=== PATIENT | female | born 1965 | race Caucasian/White ===

== ENCOUNTER 2020-01-27 21:18 | Observation (INO) | payer OTHER, SELFPAY ==
[2020-01-27 21:36] VITALS: BP 221/107; PULSE 75; RESP 18; TEMP 36.1; O2SAT 96; BMI 35.4
--- NOTE | 2020-01-27 21:38 | ED_ITS ---
HPI - Chest Pain General Chief Complaint: Extremity Injury, Upper Stated Complaint: states pulled muscle left side chest Time Seen by Provider: 01/27/20 21:35 Source: patient Mode of arrival: Ambulatory Limitations: no limitations History of Present Illness HPI narrative: 54-year-old female nonsmoker with history of hypertension on lisinopril presents with a chief complaint of left-sided chest pain with radiation to her back and her shoulder over the course of the week. She has been watching her 3 grandkids and thinks that she has overdone it must have grabbed them and pulled a muscle. She states the pain is achy and squeezing and denies much in the way of provocation or palliation. It radiates as stated. She denies associated symptoms such as dizziness, weakness or lightheadedness. She is not nauseated and denies any vomiting or diarrhea. She denies any cardiac history, denies any recent travel, history of clot or cancer. She denies any numbness, tingling or weakness. MD complaint: chest pain Onset (ago): day(s) Duration: intermittent Pain location: left chest Severity: moderate Quality: tightness and aching Pain radiation: LUE and back Relieving factors: nothing Exacerbating factors: nothing Treatments prior to arrival chest pain: none Related Data Allergies Allergy/AdvReac Type Severity Reaction Status Date / Time No Known Drug Allergies Allergy Verified 01/27/20 23:14 Review of Systems Constitutional Constitutional: Denies chills, Denies fatigue, Denies fever(s), Denies frequent falls, Denies lethargy and Denies weakness Eyes Eyes: Denies change in vision, Denies eye discharge, Denies irritation and Denies loss of vision ENT Ears, Nose, Mouth, and Throat: Denies change in voice, Denies dizziness, Denies neck pain, Denies sore throat and Denies throat swelling Cardiovascular Cardiovascular: Reports chest pain, Denies irregular heart rhythm, Denies lightheadedness, Denies palpitations, Denies dyspnea, Denies dyspnea on exertion and Denies orthopnea Respiratory Respiratory: Denies cough, Denies dyspnea, Denies dyspnea on exertion and Denies wheezing Gastrointestinal Gastrointestinal: Denies abdominal pain, Denies change in bowel habits, Denies diarrhea, Denies nausea and Denies vomiting Musculoskeletal Musculoskeletal: Denies neck pain and Denies numbness Integumentary/Breasts Skin/Breast: Denies pruritus, Denies erythema, Denies rash and Denies wounds Neurologic Neurologic: Denies behavioral changes, Denies confusion, Denies dizziness, Denies frequent falls, Denies loss of vision, Denies numbness and Denies weakness Psychiatric Psychiatric: Denies anxiety, Denies behavioral changes, Denies confusion, Denies depression, Denies homicidal ideation and Denies suicidal ideation Endocrine Endocrine: Denies fatigue, Denies flushing and Denies palpitations Hematologic/Lymphatic Hematologic/Lymphatic: Denies easy bruising Allergic/Immunologic Allergic/Immunologic: Denies urticaria, Denies throat swelling and Denies whee zing Patient History Social History Smoking Status: Never smoker Smoking Status: Never smoker alcohol intake frequency: 0-2 drinks per day Exam Narrative Exam Narrative: GENERAL: [54] year old patient appears stated age. Well- nourished, well-developed patient, in mild distress. HEAD: Atraumatic. Normocephalic. EYES: Pupils equal round and reactive. Extraocular motions intact. No scleral icterus. No injection or drainage. ENT: Nose without bleeding, purulent drainage. Throat without erythema, tonsillar hypertrophy or exudate. Airway patent. NECK: Trachea midline. Non tender CARDIOVASCULAR: Regular rate and rhythm without murmurs, gallops, or rubs. No reproducible anterior chest pain RESPIRATORY: Clear to auscultation. Breath sounds equal bilaterally. No wheezes, rales, or rhonchi. GASTROINTESTINAL: Abdomen soft, non-tender, nondistended. EXTREMITIES: No edema or joint tenderness. Not obviously worsened by use of left arm BACK: Nontender without deformity or crepitance. No flank tenderness. NEURO: AOx3. SKIN: No rash or erythema of visible areas Initial Vital Signs Initial Vital Signs: Vital Signs Temperature 97.0 F L 01/27/20 21:36 Pulse Rate 75 01/27/20 21:36 Respiratory Rate 18 01/27/20 21:36 Blood Pressure 221/107 H 01/27/20 21:36 Pulse Oximetry 96 01/27/20 21:36 Course Orders Ordered: ED Orders 01/27/20 22:35 XR chest 1V Stat Basic Metabolic Panel Stat Complete Blood Count AUTO DIFF Stat NT-proBNP (BNP-Adult 18+) Stat Troponin & CK Cardiac Panel Stat 01/28/20 00:45 D Dimer Stat Troponin I Stat 01/28/20 00:59 EKG-12 Lead Stat Nicardipine HCl 25 mg/ Sodium (Chloride) 250 mls @ 50 mls/hr IV TITRATE NING; Protocol Last Admin: 01/28/20 01:28 Dose: 5 mg/hr, 50 mls/hr Documented by: CLARENCE Discontinued Medications Ketorolac Tromethamine (Toradol) 15 mg IV NOW ONE Stop: 01/27/20 22:36 Last Admin: 01/27/20 22:41 Dose: 15 mg Documented by: CLARENCE Labetalol HCl (Trandate) 10 mg IV NOW ONE Stop: 01/27/20 23:39 Last Admin: 01/27/20 23:43 Dose: 10 mg Documented by: CLARENCE Nitroglycerin (Nitrostat) 0.4 mg SL NOW ONE Stop: 01/28/20 00:07 Last Admin: 01/28/20 00:09 Dose: 0.4 mg Documented by: CLARENCE Reevaluation(s) Reevaluation #1: Blood pressure quite elevated for patient. She states she did not miss any of her medications. Patient given labetalol 10 mg and it did very little to affect her blood pressure, her pain remains constant. Reevaluation #2: Patient given nitro and blood pressures down to the 170s and the deep, squeezing pain seems to be improved but there is still some residual pain that she struggles to describe Vital Signs Vital signs: Vital Signs - 8 hr 01/27/20 21:36 01/27/20 22:39 01/28/20 00:10 Temperature 97.0 F L Pulse Rate 75 76 78 Respiratory Rate 18 26 H 16 Blood Pressure 221/107 H Blood Pressure [Left Arm] 219/102 H 203/95 H Pulse Oximetry 96 95 97 01/28/20 00:19 01/28/20 00:21 Temperature Pulse Rate 82 Respiratory Rate 16 Blood Pressure 209/95 H Blood Pressure [Left Arm] 175/82 H Pulse Oximetry 97 MDM - Chest Pain Lab Data Result diagrams: 01/27/20 22:35 01/27/20 22:35 Labs: Lab Results 01/27/20 01/27/20 01/28/20 Range/Units 22:35 22:35 00:45 WBC 7.3 (4.5-11.0) X10^3/uL RBC 4.44 (4.0-5.2) X10^6/uL Hgb 14.0 (12.0-16.0) g/dL Hct 40.7 (36-46) % MCV 91.5 (80-100) fL MCH 31.5 (26-34) PG MCHC 34.4 (30-36) % RDW 13.6 (11.6-14.8) % Plt Count 277 (150-400) X10^3/uL Neut % (Auto) 78.9 H (50-75) % Lymph % (Auto) 15.3 L (25-40) % [place] % (Auto) 4.5 (3-14) % Eos % (Auto) 0.5 L (2-4) % Baso % (Auto) 0.8 (0-2) % Neut # (Auto) 5800 (9621-4836) /uL Lymph # (Auto) 1100 (8305-5420) /uL [place] # (Auto) 300 (0-900) /uL Eos # (Auto) 0 (0-450) /uL Baso # (Auto) 100 (0-100) /uL D-Dimer < 200 (<230) ng/mL Sodium 136 L (137-145) mmol/L Potassium 4.2 (3.4-5.1) mmol/L Chloride 102 (98-107) mmol/L Carbon Dioxide 24 (22-32) mmol/L BUN 13 (7-17) mg/dL Creatinine 0.66 (0.52-1.04) mg/dL Estimated GFR > 60.0 (>60) mL/min BUN/Creatinine Ratio 19.7 (6-22) Glucose 144 H (70-100) mg/dL Calcium 9.9 (8.4-10.2) mg/dL Total Creatine Kinase 61 (30-135) U/L CK-MB (CK-2) TNP CK-MB (CK-2) Rel Index TNP Troponin I < 0.012 (0.01-0.034) ng/mL NT-Pro-B Natriuret Pep 51 (<125) pg/mL 01/28/20 Range/Units 00:45 WBC (4.5-11.0) X10^3/uL RBC (4.0-5.2) X10^6/uL Hgb (12.0-16.0) g/dL Hct (36-46) % MCV (80-100) fL MCH (26-34) PG MCHC (30-36) % RDW (11.6-14.8) % Plt Count (150-400) X10^3/uL Neut % (Auto) (50-75) % Lymph % (Auto) (25-40) % [place] % (Auto) (3-14) % Eos % (Auto) (2-4) % Baso % (Auto) (0-2) % Neut # (Auto) (8626-9166) /uL Lymph # (Auto) (3508-5085) /uL [place] # (Auto) (0-900) /uL Eos # (Auto) (0-450) /uL Baso # (Auto) (0-100) /uL D-Dimer (<230) ng/mL Sodium (137-145) mmol/L Potassium (3.4-5.1) mmol/L Chloride (98-107) mmol/L Carbon Dioxide (22-32) mmol/L BUN (7-17) mg/dL Creatinine (0.52-1.04) mg/dL Estimated GFR (>60) mL/min BUN/Creatinine Ratio (6-22) Glucose (70-100) mg/dL Calcium (8.4-10.2) mg/dL Total Creatine Kinase (30-135) U/L CK-MB (CK-2) CK-MB (CK-2) Rel Index Troponin I < 0.012 (0.01-0.034) ng/mL NT-Pro-B Natriuret Pep (<125) pg/mL MDM Narrative Medical decision making narrative: Left-sided chest squeezing and pressure along with headache and significantly elevated blood pressure. Symptoms improve as blood pressure is controlled. Multiple antihypertensive is attempted but control achieved only with nicardipine. She is considered for ischemic disease but multiple troponins and nonischemic EKGs. Patient's initial concern for a strain chest wall muscle very unlikely given lack of reproducibility and temporal relationship with hypertension. Other diagnoses such as pulmonary embolism and dissection considered but thought less likely given history, physical and labs. Discharge Plan Departure Patient Disposition: Admitted as Observation Clinical Impression: Hypertensive emergency Chest pain Qualifiers: Chest pain type: unspecified Qualified Code(s): R07.9 - Chest pain, unspecified
--- NOTE | 2020-01-27 22:35 | DI.RAD.S_ITS ---
PROCEDURE: XR CHEST 1V INDICATIONS: chest pain TECHNIQUE: One view of the chest was acquired. COMPARISON: None. FINDINGS: Surgical changes and devices: None. Lungs and pleura: Lungs are clear. No pleural effusions or pneumothorax. Minimal appearance of increased vascularity Mediastinum: Mediastinal contours appear normal. Heart size is minimally prominent. Bones and chest wall: No suspicious bony lesions. Overlying soft tissues appear unremarkable. IMPRESSION: Minimal appearance of increased vascularity which could be secondary to edema versus vascular crowding secondary to poor inspiratory effort. No consolidations. Dictated by: Flower Dobson M.D. on 01/28/2020 at 9:45 Approved by: Flower Dobson M.D. on 01/28/2020 at 9:46
[2020-01-27 22:39] VITALS: BP 219/102; PULSE 76; RESP 26; O2SAT 95
[2020-01-27] MEDS: KETOROLAC 60 MG/2 ML VIAL 15 MG IV (22:41)
[2020-01-27 22:46] LABS: Add Manual Diff / Slide Review NO; Basophils Absolute Auto 100 /uL (0-100); Basophils Percent Auto 0.8 % (0-2); Eosinophils Absolute Auto 0 /uL (0-450); Eosinophils Percent Auto 0.5 % (2-4); Hematocrit 40.7 % (36-46); Lymphocytes Absolute Auto 1100 /uL (1100-4500); Lymphocytes Percent Auto 15.3 % (25-40); Mean Corpuscular HGB Conc 34.4 % (30-36); Mean Corpuscular Hemoglobin 31.5 PG (26-34); Mean Corpuscular Volume 91.5 fL (80-100); Monocytes Absolute Auto 300 /uL (0-900); Monocytes Percent Auto 4.5 % (3-14); Neutrophils Absolute Auto 5800 /uL (1500-7000); Neutrophils Percent Auto 78.9 % (50-75); Platelet Count 277 X10^3/uL (150-400); Red Blood Cell Count 4.44 X10^6/uL (4.0-5.2); Red Cell Distribution Width 13.6 % (11.6-14.8); White Blood Cell Count 7.3 X10^3/uL (4.5-11.0)
[2020-01-27 22:54] LABS: BUN Creatinine Ratio 19.7 (6-22); Blood Urea Nitrogen 13 mg/dL (7-17); Calcium 9.9 mg/dL (8.4-10.2); Carbon Dioxide 24 mmol/L (22-32); Chloride 102 mmol/L (98-107); Creatine Kinase 61 U/L (30-135); Estimated Glomerular Filt Rate > 60.0 mL/min (>60); Glucose 144 mg/dL (70-100); HEMOLYSIS < 15 (0-50); Potassium 4.2 mmol/L (3.4-5.1); Sodium 136 mmol/L (137-145)
[2020-01-27 23:06] LABS: NT-proBNP (BNP-Adult 18+) 51 pg/mL (<125); Troponin I < 0.012 ng/mL (0.01-0.034)
--- NOTE | 2020-01-27 23:24 | PC.NURSE ---
pt c/o left arm pain, last 2 days getting worse. no specific injury, has been carrying a baby and playing with grandkids.
[2020-01-27] MEDS: LABETALOL 20 MG/4 ML SYRINGE 10 MG IV (23:43)
[2020-01-28] VITALS (29 sets, daily range): BP systolic 130–215; BP diastolic 73–99; PULSE 69–99; RESP 16–29; TEMP 36.6–37; O2SAT 92–98; BMI 35.4
[2020-01-28] MEDS: NITROGLYCERIN 0.4 MG SL TAB SL (00:09)
--- NOTE | 2020-01-28 00:21 | PC.NURSE ---
2nd nitro given sl.
[2020-01-28 01:01] LABS: D Dimer < 200 ng/mL (<230)
[2020-01-28 01:14] LABS: Troponin I < 0.012 ng/mL (0.01-0.034)
[2020-01-28] MEDS: NICARDIPINE 25 MG in SODIUM CHLORIDE 0.9% 240 ML 50 ML IV (01:28)
--- NOTE | 2020-01-28 03:14 | P.HP_ITS ---
History of Present Illness History of Present Illness Date Patient Seen: 01/28/20 Time Patient Seen: 02:51 Chief complaint: states pulled muscle left side chest Narrative: Ms. Marie Schaeffer is a 54-year-old nonsmoker female with a history significant for hypertension, hypothyroidism status post menopause and apartment allergies who presents to the ER with complaints of left-sided chest pain with radiation to the left arm and back. The patient has been having progressive pain for 1 week bleeding she initially had strained a muscle when picking up her grandchild. She states the pain has been crest of for 3 days became intense and unbearable to 10/10 today. She has had associated episodes of diaphoresis and nausea. She has mild shortness of breath that she attributes to allergies. She describes her pain as feeling like being hit the chest with a sledgehammer and is a squeezing pressure, aching and sharp at times. She describes the pain is going down the her left upper arm add behind her left shoulder blade. The pain is no better and no worse with activity or rest. She reports no antecedent events or illness and has had no fevers or chills and no known COVID-19 exposures. She has not had headache or visual changes but has allergic rhinitis but no sore throat. He has chest pain and pressure as above with palpitations and sense of rapid heartbeat. She denies complaints of epigastric or abdominal pain, she has had nausea but no vomiting. She denies diarrhea or constipation and has no urinary symptoms. 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 Upon arrival to the ER the patient is afebrile with temperature 97.0?, heart rate of 75, blood pressure of 221/107, respirations of 18 with a pulse ox of 96% on room air. Chest x-ray is obtained which shows no acute cardiopulmonary proce sses with normal heart size and no widening of mediastinum. Her EKG reveals normal sinus rhythm without ectopy or block without ischemic changes or infarct. On laboratory analysis shows a white count of 7.3, hemoglobin of 14.0, hematocrit of 40.7 and platelets 277. Her electrolytes are within normal range she has a BUN of 13 and creatinine 0.66. Her nonfasting glucose is 144. Her calcium is 9.9 and she has a D-dimer that is negative at 200. Her total CK is 61 and she has had 2 troponins that are negative at less than 0.012. Her proBNP is 51. While in the ER the patient received nitroglycerin for the chest pain from which she did develop a headache with transient improvement in blood pressure and minimal improvement in chest discomfort. She received labetalol 100 mg with minimal improvement of blood pressure. The patient started on nicardipine drip for blood pressure control with improvement of blood pressure and chest discomfort. The patient is admitted to the medicine service for hypertensive emergency. Patient History Medical History Bilateral knee pain (Acute) Environmental allergies (Acute) Hypertension (Acute) Hypothyroidism (Acute) Postmenopausal (Acute) Surgical History History of tonsillectomy (Acute) Family & Social History Family History (Updated 01/28/20 @ 03:29 by MAHNAZ Ortega) Father Alzheimer's dementia Mother Diabetes mellitus Hypertension Hyperlipidemia Cardiovascular disease TIA (transient ischemic attack) Brother Smoker Alcohol abuse Daughter No significant medical problems Safety & Behavioral: Feels Safe in Current Yes Environment Tobacco & Substance use: Smoking Status Never smoker alcohol intake frequency 0-2 drinks per day Substance Use Type does not use Comment: The patient lives with her 90-year-old mother in a single family home for home she use primary caregiver. Smoking: The patient denies using tobacco products. Alcohol: Patient denies consuming alcoholic beverages. Substance use: The patient denies using recreational pharmaceuticals herbal or cannabis products. Advanced directives: In direct discussion with the patient she states her wish to be FULL CODE. She designates her daughter Mayr Thibodeaux to be her surrogate decision maker. Meds Home Medications and Allergies Home Medications Medication Instructions Recorded Confirmed Type duloxetine 60 mg PO DAILY 01/28/20 01/28/20 History levothyroxine 112 mcg PO DAILY 01/28/20 01/28/20 History lisinopril 10 mg PO DAILY 01/28/20 01/28/20 History Allergies Allergy/AdvReac Type Severity Reaction Status Date / Time No Known Drug Allergies Allergy Verified 01/27/20 23:14 Review of Systems Review of Systems ROS: Yes All systems reviewed with the patient and are negative except as otherwise documented Exam Vital Signs (past 8 hours): - 01/27/20 21:36 01/27/20 22:39 01/28/20 00:10 Temperature 97.0 F L Pulse Rate 75 76 78 Respiratory Rate 18 26 H 16 Blood Pressure 221/107 H Blood Pressure [Left Arm] 219/102 H 203/95 H Pulse Oximetry 96 95 97 01/28/20 00:19 01/28/20 00:21 01/28/20 00:30 Temperature Pulse Rate 82 69 Respiratory Rate 16 16 Blood Pressure 209/95 H Blood Pressure [Left Arm] 175/82 H 170/90 H Pulse Oximetry 97 94 01/28/20 00:35 01/28/20 01:00 01/28/20 01:25 Temperature Pulse Rate 76 75 78 Respiratory Rate 16 20 22 Blood Pressure Blood Pressure [Left Arm] 173/93 H 215/81 H 172/81 H Pulse Oximetry 93 96 94 01/28/20 01:30 01/28/20 01:55 01/28/20 02:20 Temperature Pulse Rate 77 81 84 Respiratory Rate 29 H 16 17 Blood Pressure Blood Pressure [Left Arm] 168/85 H 167/86 H 170/85 H Pulse Oximetry 95 96 93 01/28/20 02:30 01/28/20 02:40 01/28/20 02:50 Temperature Pulse Rate 97 H 85 89 Respiratory Rate 19 24 16 Blood Pressure Blood Pressure [Left Arm] 154/76 H 165/87 H 155/86 H Pulse Oximetry 94 93 94 01/28/20 02:55 Temperature Pulse Rate 99 H Respiratory Rate 22 Blood Pressure Blood Pressure [Left Arm] 142/73 H Pulse Oximetry 94 Oxygen Delivery Method Room Air Narrative Exam Narrative: GENERAL APPEARANCE: well developed, obese female with BMI of 35.4, who is mildly uncomfortable appearing. HEENT: Normocephalic, PERRLA, conjunctiva clear, sclerae anicteric, EOMs intact without nystagmus, no sinus tenderness to percussion, no rhinorrhea, mucous membranes are moist and pink without lesions or exudate. NECK/THYROID: neck supple, no JVD, no carotid bruit, no thyromegaly, trachea midline. LYMPH NODES: no cervical or supraclavicular lymphadenopathy. SKIN: [place], warm and dry, no visible lesions or rashes HEART: regular rate and rhythm, S1-S2, no murmur, no rubs or gallops, brisk capillary refill, trace pretibial edema LUNGS: clear to auscultation bilaterally, no coarseness crackles or wheezing, no cough present CHEST: Symmetrical movement, no accessory muscle use, good tidal volume. ABDOMEN: Soft, no distention, no abdominal tenderness, no guarding or peritoneal signs, no organomegaly, no flank or suprapubic tenderness, active bowel tones. BACK: Normal curvature, nontender to palpation. EXTREMITIES: moves all extremities, strength is 5/5 and symmetrical, no deformities or joint effusions. NEUROLOGIC: AAO x4, no focal neurologic deficits, cranial nerves II-XII grossly intact, sensation intact to light touch, hearing grossly normal to speech. PSYCH: Good judgment, good insight, linear thought process, cooperative, appropriate with stable behavior Objective Labs Result Diagrams: 01/27/20 22:35 01/27/20 22:35 Labs: Laboratory Results - last 24 hr 01/27/20 01/27/20 01/28/20 22:35 22:35 00:45 WBC 7.3 RBC 4.44 Hgb 14.0 Hct 40.7 MCV 91.5 MCH 31.5 MCHC 34.4 RDW 13.6 Plt Count 277 Neut % (Auto) 78.9 H Lymph % (Auto) 15.3 L [place] % (Auto) 4.5 Eos % (Auto) 0.5 L Baso % (Auto) 0.8 Neut # (Auto) 5800 Lymph # (Auto) 1100 [place] # (Auto) 300 Eos # (Auto) 0 Baso # (Auto) 100 D-Dimer < 200 Sodium 136 L Potassium 4.2 Chloride 102 Carbon Dioxide 24 BUN 13 Creatinine 0.66 Estimated GFR > 60.0 BUN/Creatinine Ratio 19.7 Glucose 144 H Calcium 9.9 Total Creatine Kinase 61 CK-MB (CK-2) TNP CK-MB (CK-2) Rel Index TNP Troponin I < 0.012 NT-Pro-B Natriuret Pep 51 01/28/20 00:45 WBC RBC Hgb Hct MCV MCH MCHC RDW Plt Count Neut % (Auto) Lymph % (Auto) [place] % (Auto) Eos % (Auto) Baso % (Auto) Neut # (Auto) Lymph # (Auto) [place] # (Auto) Eos # (Auto) Baso # (Auto) D-Dimer Sodium Potassium Chloride Carbon Dioxide BUN Creatinine Estimated GFR BUN/Creatinine Ratio Glucose Calcium Total Creatine Kinase CK-MB (CK-2) CK-MB (CK-2) Rel Index Troponin I < 0.012 NT-Pro-B Natriuret Pep Assessment & Plan Assessment & Plan narrative: This is a 54-year-old female patient who presents to the ER in hypertensive emergency with left-sided chest pain radiating to left arm and back with associated diaphoresis and nausea. 1. Hypertensive emergency, present on admission, active. -patient has had some symptoms left arm and back pain that she attributed to a musculoskeletal injury onset 1 week ago becoming worse over the last 3 days with episodic nausea and diaphoresis not associated with activity. -on admission to the ER the patient is found have a blood pressure of 221/107 with a history of hypertension and has been regularly taking lisinopril 10 mg daily. -in the ER the patient received nitroglycerin sublingual x2 with transient improvement in blood pressure and symptoms and labetalol 100 mg without improvement. -12 lead EKG find sinus rhythm with ventricular rate of 75 without ectopy or block, ischemia or infarct. Troponins are evaluated x2 with both less than 0.012. -no evidence of congestive heart failure, breath sounds clear and equal bilateral with BNP of 51 -patient started on nicardipine drip with improvement of blood pressure to 150s to 160s. Will titrate nicardipine drip to systolic blood pressure less than 170. -order metoprolol tartrate 25 mg now, will evaluate response and may continue of 25 mg twice daily. -will continue home regimen of lisinopril 10 mg daily. 2. Hypothyroidism, acquired, chronic, stable -patient denies symptoms of hyper or hypothyroidism her recent dose adjustment. -will continue levothyroxine 112 mcg daily. -will obtain a TSH level with reflex to T4. 3. Anxiety, chronic, stable -per patient report she takes duloxetine for anxiety. -will continue home regimen of duloxetine 60 mg daily Isolation: None VTE prophylaxis: Bilateral SCDs, enoxaparin IV fluid: Nicardipine infusion, no maintenance fluid Diet: Heart healthy low-sodium Code status: FULL CODE, patient's daughter Mary Thibodeaux is her surrogate decision maker. The patient is admitted to the ICU for hypertensive emergency with associated chest pain on a nicardipine drip requiring continuous titration and monitoring. The patient is admitted as observation with expected length of stay to be less than 2 midnights. Critical care time: 45 minutes is spent with over 50% in direct [id number] with the patient. COVID-19 COVID-19 status: Not tested Scores GCS Brian coma scale eye opening: Spontaneous Brian coma scale verbal response: Orientated Brian coma scale motor response: Obey commands [place] coma scale total score: 15
[2020-01-28] MEDS: METOPROLOL IR 25 MG TABLET PO ×2 (03:53→08:09)
--- NOTE | 2020-01-28 03:57 | PC.NURSE ---
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 Pt is alert, oriented X3. IV in place in lt AC, with Nicardipine drip infusing at 25cc/hr = 2.5mg/hr. Vital signs stable, with blood pressure trending down and is now 170/84. Oriented to room and call jose.
--- NOTE | 2020-01-28 04:27 | DI.ECHO.S_ITS ---
[facility] +---------+ : : [address] : : : : [id number] : : : : Phone: [phone]+ Echocardiogram Report + + :Name: TONYA GARCIA Study Date: 01/28/2020 Height: 69 in : :[facility] Weight: 240 lb : : Gender: Female BSA: 2.2 m2 : :: 1965 Age: 54 yrs BP: 170/84 mmHg: :Reason For Study: HYPERTENSIVE EMERGENCY, CP : : Performed By: Bernardo Flynn : :Referring: GRANT VALLES : + + Interpretation Summary Normal both left and right ventricle size and function. The ejection fraction is 60-65%. Mild aortic regurgitation. The ascending aorta is at the upper limits of normal in size. Procedure: A two-dimensional transthoracic echocardiogram with color flow and Doppler was performed. The study quality was technically good. There is no prior echocardiogram noted for this patient. The patient was in normal sinus rhythm during the exam. Left Ventricle: The left ventricle is normal in size. There is normal left ventricular wall thickness. The ejection fraction is estimated to be 60-65%. There are no focal wall motion abnormalities. Diastolic parameters suggest probable normal left ventricular diastolic function and normal filling pressures. Right Ventricle: The right ventricle is normal in size and function. Atria: Both atria are normal in size. The interatrial septum is intact with no evidence for an atrial septal defect. Mitral Valve: The mitral valve is normal in structure and function. There is trace mitral regurgitation. Aortic Valve: The aortic valve is trileaflet. The aortic valve opens well. There is mild aortic regurgitation. Tricuspid Valve: The tricuspid valve is normal in structure and function. No tricuspid regurgitation. Pulmonary artery pressures cannot be estimated because of the lack of a measurable TR jet velocity. Pulmonic Valve: The pulmonic valve is normal in structure and function. There is mild pulmonic regurgitation. Great Vessels: The aortic root is normal size. The ascending aorta is at the upper limits of normal in size. The pulmonary artery is normal size. The IVC is of normal diameter and collapses greater than 50% with a sniff. This suggests a low right atrial pressure of 3 mm Hg. Pericardium/ Pleura There is no pericardial effusion. There is no pleural effusion. MMode/2D Measurements & Calculations LVIDd: 4.8 cm LVOT diam: 2.2 cm LVIDs: 2.9 cm Ao root diam: 3.3 cm FS: 39.6 % asc Aorta Diam: 3.5 cm EPSS: 0.37 cm Ao Arch Diam (Prox Trans): 2.5 cm IVSd: 0.87 cm LVPWd: 0.71 cm LV carlson. diameter/BSA (cm/m^2): 2.2 LV sys. diameter/BSA (cm/m^2): 1.3 LA dimension: 3.7 cm RA long axis: 5.6 cm LA A2 area: 22.1 cm2 RA area: 17.2 cm2 LA A4 area: 21.9 cm2 RA vol: 44.8 ml LA length (vol): 6.2 cm RA : 20.1 ml/m2 LA vol: 66.2 ml IVC diam: 1.4 cm LA vol index: 29.6 ml/m2 Doppler Measurements & Calculations Ao V2 max: 132.8 cm/sec LVOT Max Evan: 125.5 cm/sec Ao V2 mean: 97.5 cm/sec LV V1 max P.3 mmHg Ao max P.1 mmHg LV V1 VTI: 26.2 cm Ao mean P.1 mmHg MIMA(I,D): 3.3 cm2 Ao V2 VTI: 30.3 cm MIMA(V,D): 3.6 cm2 sev ratio: 0.86 MIMA indexed to BSA (cm^2/m^2): 1.5 AI P1/2t: 733.1 msec AI dec slope: 180.0 cm/sec2 MV E max evan: 62.3 cm/sec PA V2 max: 73.1 cm/sec MV A max evan: 67.6 cm/sec PA V2 mean: 54.5 cm/sec MV E/A: 0.92 PA mean P.3 mmHg Med Peak E' Evan: 6.3 cm/sec PA pr(Accel): 56.7 mmHg E/E' med: 9.9 Lat Peak E' Evan: 8.1 cm/sec E/E' lat: 7.7 E/e' average: 8.8 MV dec time: 0.17 sec SV(LVOT): 99.2 ml Electronically signed by: Bryce Vincent on Reading Physician:01/28/2020 04:14 PM
[2020-01-28 05:03] LABS: Add Manual Diff / Slide Review NO; Basophils Absolute Auto 100 /uL (0-100); Basophils Percent Auto 0.8 % (0-2); Eosinophils Absolute Auto 0 /uL (0-450); Eosinophils Percent Auto 0.6 % (2-4); Hematocrit 40.4 % (36-46); Hemoglobin 13.7 g/dL (12.0-16.0); Lymphocytes Absolute Auto 1600 /uL (1100-4500); Lymphocytes Percent Auto 19.6 % (25-40); Mean Corpuscular Hemoglobin 31.4 PG (26-34); Mean Corpuscular Volume 92.6 fL (80-100); Monocytes Absolute Auto 600 /uL (0-900); Monocytes Percent Auto 7.4 % (3-14); Neutrophils Absolute Auto 5900 /uL (1500-7000); Neutrophils Percent Auto 71.6 % (50-75); Platelet Count 277 X10^3/uL (150-400); Red Blood Cell Count 4.36 X10^6/uL (4.0-5.2); Red Cell Distribution Width 13.9 % (11.6-14.8); White Blood Cell Count 8.3 X10^3/uL (4.5-11.0)
[2020-01-28 05:09] LABS: BUN Creatinine Ratio 17.7 (6-22); Blood Urea Nitrogen 11 mg/dL (7-17); Calcium 10.1 mg/dL (8.4-10.2); Carbon Dioxide 29 mmol/L (22-32); Chloride 101 mmol/L (98-107); Cholesterol 264 mg/dL (140-199); Estimated Glomerular Filt Rate > 60.0 mL/min (>60); Glucose 127 mg/dL (70-100); HDL Cholesterol 60 mg/dL (40-60); HEMOLYSIS < 15 (0-50); LDL Cholesterol Calculated 185 mg/dL (<100); Magnesium 2.1 mg/dL (1.6-2.3); Potassium 4.1 mmol/L (3.4-5.1); Sodium 139 mmol/L (137-145); Triglycerides 95 mg/dL (35-150)
[2020-01-28 05:44] LABS: TSH w/ Reflex to FT4 1.47 uIU/mL (0.47-4.68)
[2020-01-28] MEDS: LEVOTHYROXINE 112 MCG TABLET PO (06:02)
[2020-01-28] MEDS: ENOXAPARIN 40 MG/0.4 ML SYRINGE SUBCUT (08:09)
[2020-01-28] MEDS: DULOXETINE 30 MG CAPSULE 60 MG PO (08:09)
[2020-01-28] MEDS: lisinopriL 20 MG TABLET PO (08:09)
--- NOTE | 2020-01-28 10:10 | CM.DANOTE ---
DCP/Assessment: Reviewed chart. Patient is a 54yr old female admitted to I.. with chest pain. PCP is Dena HYDE in [place]. Primary payor is 1)[facility]. Met with patient explained CM/SW role. Patient reports that she resides with family in [place]. 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 Patient also cares for her grandchildren on occasion. Patient reports that she is so busy caring for everyone else often times neglects self care. Patient having chest pain for approximately 1 week. BP high 221/107 upon admit. Patient does not have tutoring clinician and reports that current BP medications are managed by her PCP. Patient provided with some tips on how to log her BP daily. Provider reports in AM rounds that patient most likely will d/c home today if tests negative. Patient has ECHO pending. Patient reports that she is completely I in all ADL's. Patient aware that BP needs to be monitored closely. Patient plans to f/u closely with PCP and tutoring clinician if needed. No d/c planning needs identified. P: Home with family when medically stable. JESSICA Zaragoza Discharge Planning/Care Management CM Discharge Assessment Start: 01/28/20 10:07 Freq: Status: Active Protocol: Document 01/28/20 10:07 CLINT (Rec: 01/28/20 10:10 [facility] [id number]) Discharge Planning Assessment Assigned Radio Electronics Officer JESSICA Zaragoza Contact Information Mary Thibodeaux (daughter) Advance Directives? No History Provided By Patient,Medical Record Prior Living Arrangements House Household Members family Comment Patient is caregiver to her 90yr old mother. Type of transporation used prior to Drives own vehicle admit Independent with ADL's Yes Is patient alert and oriented? Yes Caregiver for Another Yes Barriers to Discharge No Transportation Arrangement Family to provide transport when medically stable. Referrals Initiated None needed Whiteboard Updated in Patient Room with Yes name and ext. # of Radio Electronics Officer Review Status In Process Next Review Type Continued Stay Review
--- NOTE | 2020-01-28 12:21 | DIET.PN ---
Dietary Progress Note Assessment: Ms. Marie Schaeffer is a 54-year-old female with a history significant for hypertension, hypothyroidism status post menopause and allergies who presents to the ER with complaints of left-sided chest pain. The patient has been having progressive pain for 1 week. She initially had strained a muscle when picking up her grandchild. She has had associated episodes of diaphoresis and nausea. She has mild shortness of breath that she attributes to allergies. She admits she does not follow heart healthy restricted diet at home. Common tye include pasta, pizza, [place] food, pre-packaged meals. She is not active and reports a strong family hx of diabetes. HT: 175.26cm WT: 108.8kg UBW: n/a BMI: 35.4 Labs: Gluc: 144, 122 Chol: 264 LDL: 185 MNA: 14 Stephen: 22 Nutrition Diagnosis: Altered nutrition-related lab values r/t cardiac dysfunction aeb elevated serum lipids, shortness of breath. Interventions: 1. Discussed heart healthy nutrition therapy. Provided handouts on heart healthy proteins and fats. 2. Discussed sodium recommendations and ways to cut down on salt. 3. Discussed the importance of fiber in a balanced diet and in helping to control blood pressure and cholesterol. 4. Reviewed the importance of exercise in heart health. Pt agrees to aim for 30min/day of planned activity. Diet Order: heart healthy, low sodium EER: 1121-1342 favio (15-17cal/kg for weight loss) Pro: 110g (1g/kg) Monitoring/Evaluations: weight, PO's, associated labs.
--- NOTE | 2020-01-28 13:20 | PC.NURSE ---
Addendum entered by Jemal Correa R.N. 01/28/20 14:57: 1345- Reviewed EKG with Dr. De La Torre. States waiting for echo report. No add'l orders at this time. Instructed pt to notify staff for increasing chest pressure/pain or new symptoms. Educated to plan of care. Pt verbalizes understanding. Sitting up to chair at this time. Original Note: 1315- Pt reports pressure to left chest wall accompanied by pain rating it 3/10 on 0-[address] De La Torre notified. Awaiting orders.
--- NOTE | 2020-01-28 16:28 | PM.DS.1 ---
History of Present Illness History of Present Illness Date Patient Seen: 01/28/20 Time Patient Seen: 16:28 Chief complaint: states pulled muscle left side chest Narrative: As per MAHNAZ Ortega: Ms. Marie Schaeffer is a 54-year-old nonsmoker female with a history significant for hypertension, hypothyroidism status post menopause and apartment allergies who presents to the ER with complaints of left-sided chest pain with radiation to the left arm and back. The patient has been having progressive pain for 1 week bleeding she initially had strained a muscle when picking up her grandchild. She states the pain has been crest of for 3 days became intense and unbearable to 10/10 today. She has had associated episodes of diaphoresis and nausea. She has mild shortness of breath that she attributes to allergies. She describes her pain as feeling like being hit the chest with a sledgehammer and is a squeezing pressure, aching and sharp at times. She describes the pain is going down the her left upper arm add behind her left shoulder blade. The pain is no better and no worse with activity or rest. She reports no antecedent events or illness and has had no fevers or chills and no known COVID-19 exposures. She has not had headache or visual changes but has allergic rhinitis but no sore throat. He has chest pain and pressure as above with palpitations and sense of rapid heartbeat. She denies complaints of epigastric or abdominal pain, she has had nausea but no vomiting. She denies diarrhea or constipation and has no urinary symptoms. 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 Upon arrival to the ER the patient is afebrile with temperature 97.0?, heart rate of 75, blood pressure of 221/107, respirations of 18 with a pulse ox of 96% on room air. Chest x-ray is obtained which shows no acute cardiopulmonary processes with normal heart size and no widening of mediastinum. Her EKG reveals normal sinus rhythm without ectopy or block without ischemic changes or infarct. On laboratory analysis shows a white count of 7.3, hemoglobin of 14.0, hematocrit of 40.7 and platelets 277. Her electrolytes are within normal range she has a BUN of 13 and creatinine 0.66. Her nonfasting glucose is 144. Her calcium is 9.9 and she has a D-dimer that is negative at 200. Her total CK is 61 and she has had 2 troponins that are negative at less than 0.012. Her proBNP is 51. While in the ER the patient received nitroglycerin for the chest pain from which she did develop a headache with transient improvement in blood pressure and minimal improvement in chest discomfort. She received labetalol 100 mg with minimal improvement of blood pressure. The patient started on nicardipine drip for blood pressure control with improvement of blood pressure and chest discomfort. The patient is admitted to the medicine service for hypertensive emergency. Discharge Providers Provider Date of admission: 01/28/20 02:50 Discharge Date: 01/28/20 Consults: 01/28/20 03:09 Consult to Dietitian, Adult Routine Comment: Reason For Exam: Obesity BMI 35.4, hypertensive emergency 01/28/20 03:10 Consult to Discharge Planning Routine Comment: Discharge provider: Denilson De La Torre DO Summary Hospital Course Hospital Course: The patient is a 54-year-old female with past medical history of hypertension, hypothyroidism, and anxiety who presented with some worsening left-sided chest pressure with radiation to her arm and back over the past week with some episodic nausea and diaphoresis as well. On arrival to the emergency room patient had a blood pressure of 221/107 despite regularly taking her home lisinopril. She also complained of chest pressure and was treated as a hypertensive emergency. She had 2 further episodes chest pressure that were self limited. EKG was performed during 1 episode which showed normal sinus rhythm without any ST or T-wave abnormalities indicative of ischemia. Troponins were negative x2. Given patient's improvement, as well as normal echocardiogram, she was discharged home and will follow-up with her primary care for possible further workup if her chest pains continue. 1. Hypertensive emergency, present on admission, active. -patient has had some symptoms left arm and back pain that she attributed to a musculoskeletal injury onset 1 week ago becoming worse over the last 3 days with episodic nausea and diaphoresis not associated with activity. -on admission to the ER the patient is found have a blood pressure of 221/107 with a history of hypertension and has been regularly taking lisinopril 10 mg daily. She was started on a nicardipine infusion and given metoprolol as well as an increased dose of lisinopril in the morning. Her chest pains had improved, but were still intermittently present. EKG done for an episode of chest pain as noted above. Troponins remained negative. She was weaned off of nicardipine infusion shortly after her arrival, and her blood pressure was stable in the 140s to 160s systolic throughout the rest of the day. She was discharged on an increased dose of lisinopril and metoprolol and will follow-up with her primary care provider as well as take daily blood pressure measurements at home. -in the ER the patient received nitroglycerin sublingual x2 with transient improvement in blood pressure and symptoms and labetalol 100 mg without improvement. -12 lead EKG find sinus rhythm with ventricular rate of 75 without ectopy or block, ischemia or infarct. Troponins are evaluated x2 with both less than 0.012. Repeat EKG for another episode of chest pain again showed normal sinus rhythm without any evidence of active ischemia. -no evidence of congestive heart failure, breath sounds clear and equal bilateral with BNP of 51. Echocardiogram was unremarkable, only showing mild aortic regurgitation. 2. Hypothyroidism, acquired, chronic, stable -patient denies symptoms of hyper or hypothyroidism her recent dose adjustment. -continue levothyroxine 112 mcg daily. -TSH was unremarkable. 3. Anxiety, chronic, stable -per patient report she takes duloxetine for anxiety. -will continue home regimen of duloxetine 60 mg daily Exam Vital Signs (past 8 hours): - 01/28/20 08:30 01/28/20 09:00 01/28/20 13:00 Temperature 98.6 F Pulse Rate 85 80 84 Respiratory Rate 18 22 20 Blood Pressure 150/90 H 158/92 H 151/99 H Pulse Oximetry 98 01/28/20 15:58 Temperature 98.3 F Pulse Rate 77 Respiratory Rate 18 Blood Pressure 166/93 H Pulse Oximetry 95 Oxygen Delivery Method Room Air Oxygen Flow Rate 0 Narrative Exam Narrative: GENERAL APPEARANCE: Well developed, well nourished, obese female in no acute distress. SKIN: Inspection of the skin reveals no rashes, ulcerations or petechiae. HEENT: Normocephalic atraumatic, extraocular muscles are intact, oropharynx is clear and mucous membranes are moist, neck is supple without adenopathy NECK: Supple and symmetric. There was no thyroid enlargement, and no tenderness, or masses were felt. CHEST: Normal AP diameter and normal contour without any kyphoscoliosis. LUNGS: Auscultation of the lungs revealed no wheezes, rhonchi, or rales. CARDIOVASCULAR: There was a regular rate and rhythm without any murmurs, gallops, rubs. Peripheral pulses were 2+ and symmetric. ABDOMEN: Soft and nontender with normal bowel sounds. No ascites was noted. MUSCULOSKELETAL: There was no tenderness or effusions noted. Muscle strength and tone were normal. EXTREMITIES: No cyanosis, clubbing or edema. NEUROLOGIC: Alert and oriented x 3. Normal affect. Gait was normal. Strength is +5/5 in the Upper Extremities and Lower Extremities Bilaterally. Sensation to touch was normal. Objective Labs Result Diagrams: 01/28/20 04:35 01/28/20 04:35 Labs: Laboratory Results - last 24 hr 01/27/20 01/27/20 01/28/20 22:35 22:35 00:45 WBC 7.3 RBC 4.44 Hgb 14.0 Hct 40.7 MCV 91.5 MCH 31.5 MCHC 34.4 RDW 13.6 Plt Count 277 Neut % (Auto) 78.9 H Lymph % (Auto) 15.3 L Wayne % (Auto) 4.5 Eos % (Auto) 0.5 L Baso % (Auto) 0.8 Neut # (Auto) 5800 Lymph # (Auto) 1100 Wayne # (Auto) 300 Eos # (Auto) 0 Baso # (Auto) 100 D-Dimer < 200 Sodium 136 L Potassium 4.2 Chloride 102 Carbon Dioxide 24 BUN 13 Creatinine 0.66 Estimated GFR > 60.0 BUN/Creatinine Ratio 19.7 Glucose 144 H Calcium 9.9 Magnesium Total Creatine Kinase 61 CK-MB (CK-2) TNP CK-MB (CK-2) Rel Index TNP Troponin I < 0.012 NT-Pro-B Natriuret Pep 51 Triglycerides Cholesterol LDL Cholesterol, Calc HDL Cholesterol TSH 01/28/20 01/28/20 01/28/20 00:45 04:35 04:35 WBC 8.3 RBC 4.36 Hgb 13.7 Hct 40.4 MCV 92.6 MCH 31.4 MCHC 34.0 RDW 13.9 Plt Count 277 Neut % (Auto) 71.6 Lymph % (Auto) 19.6 L Wayne % (Auto) 7.4 Eos % (Auto) 0.6 L Baso % (Auto) 0.8 Neut # (Auto) 5900 Lymph # (Auto) 1600 Wayne # (Auto) 600 Eos # (Auto) 0 Baso # (Auto) 100 D-Dimer Sodium 139 Potassium 4.1 Chloride 101 Carbon Dioxide 29 BUN 11 Creatinine 0.62 Estimated GFR > 60.0 BUN/Creatinine Ratio 17.7 Glucose 127 H Calcium 10.1 Magnesium 2.1 Total Creatine Kinase CK-MB (CK-2) CK-MB (CK-2) Rel Index Troponin I < 0.012 NT-Pro-B Natriuret Pep Triglycerides 95 Cholesterol 264 H LDL Cholesterol, Calc 185 H HDL Cholesterol 60 TSH 01/28/20 04:35 WBC RBC Hgb Hct MCV MCH MCHC RDW Plt Count Neut % (Auto) Lymph % (Auto) Wayne % (Auto) Eos % (Auto) Baso % (Auto) Neut # (Auto) Lymph # (Auto) Wayne # (Auto) Eos # (Auto) Baso # (Auto) D-Dimer Sodium Potassium Chloride Carbon Dioxide BUN Creatinine Estimated GFR BUN/Creatinine Ratio Glucose Calcium Magnesium Total Creatine Kinase CK-MB (CK-2) CK-MB (CK-2) Rel Index Troponin I NT-Pro-B Natriuret Pep Triglycerides Cholesterol LDL Cholesterol, Calc HDL Cholesterol TSH 1.47 Discharge Plan Discharge Plan Patient Disposition: Home Discharge comment: You were admitted to the hospital with high blood pressure. You had intermittent chest pains which may be secondary to the elevated blood pressure, but your heart appeared normal on ultrasound. If these continue would initially recommend OTC zantac or omeprazole for a few weeks. If still no improvement consider outpatient stress testing. You were started on a new BP medication and your home lisinopril was increased. Please follow up with your primary care provider within 1-2 weeks and bring a log of your blood pressures. You were started on a medication for cholesterol as well given your cholesterol lab results performed here. Discharge orders & Medications Prescriptions: New lisinopril 20 mg Tablet 20 mg PO DAILY 30 Days Qty: 30 RF: 0 atorvastatin [Lipitor] 20 mg Tablet 20 mg PO BEDTIME 30 Days Qty: 30 RF: 0 metoprolol succinate 25 mg tablet extended release 24 hr 25 mg PO BID 30 Days Qty: 60 RF: 0 Continued levothyroxine 112 mcg Tablet 112 mcg PO DAILY RF: 0 duloxetine 30 mg Capsule,Delayed Release(Dr/Ec) 60 mg PO DAILY RF: 0 Discontinued lisinopril 10 mg Tablet 10 mg PO DAILY RF: 0 Discharge Health Status Health Concerns: HTN HLD Diet/Activity/Treatments Diet: Diet as Tolerated and Low-cholesterol Activity: As tolerated Visit Report/Discharge Packet Instructions: Essential Hypertension, Heart-Healthy Diet Visit Report Forms: Patient Portal/API, Stroke Signs & Symptoms Discharge Data Attending Provider: Denilson Hernandez Admlizzie Date/Time: 01/28/20 02:50
--- NOTE | 2020-01-28 17:40 | PC.NURSE ---
2566 pt discharged ambulatory with RN escort. IV removed prior to discharge, all discharge instructions given and pt verbalized understanding. Denied pain or discomfort prior to discharge.
== END 2020-01-28 17:35 | disposition home or self-care (01) ==
LOC: ED 01-28 01:37 → AC 01-28 02:51 → ICU 01-28 03:24
PROVIDERS: Admitting Provider Nurse Practitioner Adult Health; Emergency Provider Emergency Medicine; Visit Provider Nurse Practitioner Adult Health
DX: I16.1 Hypertensive emergency (principal); R07.89 Other chest pain; I10 Essential (primary) hypertension; E03.9 Hypothyroidism, unspecified; F41.9 Anxiety disorder, unspecified
CPT/HCPCS: 36415; 71045; 80048; 80061; 82550; 82553; 83735; 83880; 84443; 84484; 85025; 85379; 93005; 93306; 96365; 96366; 96372; 96375; 99284; G0378; J1650; J1885

== ENCOUNTER → 2020-03-08 13:55 | Outpatient (CLI) | payer OTHER, SELFPAY ==
[2020-01-28 03:15] VITALS: BMI 35.4
[2020-03-10 20:43] LABS: COVID19 Sendout Not Detected (Not Detect)
== END ==
PROVIDERS: Visit Provider Physician Assistant
DX: Z11.59 Encounter for screening for other viral diseases (principal)
CPT/HCPCS: 87635

== ENCOUNTER → 2020-03-11 10:48 | Outpatient (CLI) | payer OTHER, SELFPAY ==
[2020-01-28 03:15] VITALS: BMI 35.4
--- NOTE | 2020-03-11 | DI.NM.S_ITS ---
PROCEDURE: NM SHANI PERF SPECT REST & STR Rest and exercise myocardial perfusion SPECT with gated imaging and ejection fraction RADIOPHARMACEUTICAL: 24.8 mCi Tc-99m sestamibi IV at rest and 25.4 mCi Tc-99m sestamibi IV at peak exercise. A two day-protocol was performed. INDICATIONS: Chest pain, unspecified TECHNIQUE: Radiopharmaceutical was injected at peak stress test, and also at rest. SPECT images were obtained. SPECT myocardial perfusion images were displayed in short axis, horizontal long axis, and vertical long axis views. Gated images were reviewed using [employer] software. COMPARISON: None. CARDIAC STRESS: A standard Demarcus treadmill exercise tolerance test was performed by the patient under the supervision of an attending staff. The patient exercised for 6 minutes and 16 seconds; functional aerobic impairment (LARA) is 0%. Hemodynamic data: There is normal blood pressure and heart rate response to exercise stress. Patient achieved 93% of maximum predicted heart rate at peak exercise. Symptoms: Patient denied chest pain during exercise. EKG: Resting ECG shows sinus rhythm with non-specific T wave changes. With exercise, there were minimal horizontal ST depressions in the inferior and anterolateral leads. FINDINGS: Raw data: There is good myocardial labeling by radiotracer. No significant motion artifacts. Euuk-gt-pyxrj ratio is 0.35 (normal is less than 0.38 for sestamibi tracer, and less than 0.50 for thallium tracer). Left ventricle function: Gated images demonstrate normal left ventricle wall thickening. No segmental wall motion abnormality. No transient ischemic dilation; TID is 1.13 (normal less than 1.3). The left ventricle resting end-diastolic volume is 84 mL. Left ventricle stress ejection fraction is 81%; normal values are above 45%. Myocardial perfusion: There is normal distribution of activity in the left and right ventricular myocardium. No fixed or reversible perfusion defects. IMPRESSION: low risk, normal treadmill nuclear stress test 1) No perfusion evidence of ischemia or infarction. 2) Normal left ventricular size, wall motion, and systolic function (EF post stress 81%). 3) Non-diagnostic ECG changes with exercise that are probable due to baseline T wave changes. 4) No angina during the study. 5) Average exercise tolerance (7.0 METs, LARA 0%). Target heart rate achieved. Appropriate BP response to exercise. 6) No prior nuclear stress test available for comparison. Dictated by: Tia Stern MD on 03/12/2020 at 16:53 Approved by: Tia Stern MD on 03/12/2020 at 16:58
== END ==
PROVIDERS: PCP Physician Assistant; Referring Provider Physician Assistant; Visit Provider Physician Assistant
DX: R07.9 Chest pain, unspecified (principal)
CPT/HCPCS: 78452; 93017; A9502

== ENCOUNTER → 2020-03-28 14:41 | Outpatient (CLI) | payer OTHER, SELFPAY ==
[2020-01-28 03:15] VITALS: BMI 35.4
--- NOTE | 2020-03-28 | DI.US.S_ITS ---
PROCEDURE: US CAROTID DOPPLER BI INDICATIONS: HYPERLIPIDEMIA TECHNIQUE: Color and pulse Doppler interrogation was performed of both carotid systems, with image documentation and velocity measurements. COMPARISON: None. FINDINGS: Stenosis calculations are based on SRU (Society of Radiologists in Ultrasound) criteria. Right side: Common carotid artery peak systolic velocity: 73 cm/sec. Internal carotid artery peak systolic velocity: 58 cm/sec. Internal carotid artery end diastolic velocity: 28 cm/sec. External carotid artery peak systolic velocity: 82 cm/sec. ICA/CCA peak systolic ratio: 0.9 . Schaffer scale imaging description: Normal Percent internal carotid artery stenosis: None found . Vertebral artery: Flow direction is antegrade. Left side: Common carotid artery peak systolic velocity: 68 cm/sec. Internal carotid artery peak systolic velocity: 86 cm/sec. Internal carotid artery end diastolic velocity: 36 cm/sec. External carotid artery peak systolic velocity: 93 cm/sec. ICA/CCA peak systolic ratio: 1.3 . Schaffer scale imaging description: Normal Percent internal carotid artery stenosis: None found . Vertebral artery: Flow direction is antegrade. IMPRESSION: No carotid stenosis found bilaterally. Vertebral arterial flow is antegrade in direction. Dictated by: David Banks M.D. on 03/28/2020 at 16:00 Approved by: David Banks M.D. on 03/28/2020 at 16:01
== END ==
PROVIDERS: PCP Physician Assistant; Referring Provider Physician Assistant; Visit Provider Physician Assistant
DX: E78.2 Mixed hyperlipidemia (principal)
CPT/HCPCS: 93880